=== PATIENT | male | born 1945 | race Caucasian/White ===

== ENCOUNTER 2016-08-29 09:00 | Outpatient (CLI) | payer MEDICARE, OTHER | END 2016-08-29 23:59 | disposition home or self-care (01) | LOC: WOU 09:00 | PROVIDERS: ATTEND Podiatrist Foot & Ankle Surgery | DX: M72.2 Plantar fascial fibromatosis (principal); I83.891 Varicose veins of right lower extremity with other complications; M17.12 Unilateral primary osteoarthritis, left knee | CPT/HCPCS: G0463 ==

== ENCOUNTER 2016-12-04 08:43 | Outpatient (CLI) | payer MEDICARE, OTHER ==
[2016-12-04 09:35] LABS: BASOPHILS % (AUTO) 0.5 % (0.0-2.0); EOSINOPHILS # (AUTO) 0.3 /CMM (0.0-0.7); EOSINOPHILS % (AUTO) 4.3 % (0.0-6.0); HEMATOCRIT 44 % (39-51); HEMOGLOBIN 14.6 g/dL (13.5-17.5); LYMPHOCYTES # (AUTO) 1.3 /CMM (0.8-4.8); LYMPHOCYTES % (AUTO) 19.8 % (20.0-44.0); MEAN CORPUSCULAR HEMOGLOBIN 30 PG (26.0-33.0); MEAN CORPUSCULAR HGB CONC 33 g/dl (31.0-36.0); MEAN CORPUSCULAR VOLUME 90 fL (80-96); MONOCYTES # (AUTO) 0.5 /CMM (0.1-1.30); MONOCYTES % (AUTO) 7.4 % (2.0-12.0); NEUTROPHILS # (AUTO) 4.3 /CMM (1.8-8.9); PLATELET COUNT (AUTO) 232 /CMM (150-450); RDW COEFFICIENT OF VARIATION 14.1 (11.5-15.0); RED BLOOD CELL COUNT(AUTO) 4.93 MIL/uL (4.5-6.0); WHITE BLOOD COUNT (AUTO) 6.3 K/uL (4.3-11.0)
[2016-12-04 09:39] LABS: BILIRUBIN,TOTAL 0.6 mg/dL (0.2-1.0); CALCIUM, SERUM 9.1 mg/dL (8.5-10.1); CREATININE 1.1 mg/dL (0.6-1.3); POTASSIUM 4.2 mmol/L (3.5-5.1); TOTAL PROTEIN, SERUM 7.4 g/dL (6.4-8.2)
[2016-12-04 09:47] LABS: PROSTATE SPECIFIC ANTIGEN SCR 0.77 ng/mL (0.00-4.00); THYROID STIMULATING HORMONE 2.677 uIU/mL (0.358-3.74)
== END 2016-12-04 23:59 | disposition home or self-care (01) ==
LOC: LAB 08:43
PROVIDERS: ATTEND Internal Medicine Cardiovascular Disease
DX: E78.5 Hyperlipidemia, unspecified (principal); I10 Essential (primary) hypertension; R53.83 Other fatigue; N40.0 Benign prostatic hyperplasia without lower urinary tract symptoms
CPT/HCPCS: 36415; 80053-TC; 80061-TC; 84153-TC; 84443-TC; 85025-TC

== ENCOUNTER 2017-06-15 10:19 | Inpatient (IN) | payer MEDICARE, OTHER ==
[~2017-06-15] VITALS: Ht 180.3 cm; Wt 93.0 kg
[2017-06-15] MEDS ORDERED: IV NS 0.9% 500 ML BAG IV ONE (11:00)
[2017-06-15 11:15] LABS: BASOPHILS % (AUTO) 0.4 % (0.0-2.0); EOSINOPHILS # (AUTO) 0.3 /CMM (0.0-0.7); EOSINOPHILS % (AUTO) 4.4 % (0.0-6.0); HEMATOCRIT 48 % (39-51); HEMOGLOBIN 15.9 g/dL (13.5-17.5); LYMPHOCYTES # (AUTO) 1.1 /CMM (0.8-4.8); LYMPHOCYTES % (AUTO) 19.7 % (20.0-44.0); MEAN CORPUSCULAR HEMOGLOBIN 30 PG (26.0-33.0); MEAN CORPUSCULAR HGB CONC 33 g/dl (31.0-36.0); MEAN CORPUSCULAR VOLUME 90 fL (80-96); MONOCYTES # (AUTO) 0.5 /CMM (0.1-1.30); MONOCYTES % (AUTO) 9.3 % (2.0-12.0); NEUTROPHILS # (AUTO) 3.8 /CMM (1.8-8.9); NEUTROPHILS % (AUTO) 66.2 % (43.0-81.0); PLATELET COUNT (AUTO) 189 /CMM (150-450); RDW COEFFICIENT OF VARIATION 14.7 (11.5-15.0); RED BLOOD CELL COUNT(AUTO) 5.34 MIL/uL (4.5-6.0); WHITE BLOOD COUNT (AUTO) 5.7 K/uL (4.3-11.0)
[2017-06-15] MEDS ORDERED: MULT-24 PO (11:15)
[2017-06-15] MEDS ORDERED: ASPI81TA2 PO (11:15)
[2017-06-15] MEDS ORDERED: LOSA100T15 PO (11:15)
[2017-06-15] MEDS ORDERED: LEVO50TA8 PO (11:15)
[2017-06-15] MEDS ORDERED: METO25TA20 PO (11:15)
[2017-06-15] MEDS ORDERED: SIMV10TA6 PO (11:15)
[2017-06-15] MEDS ORDERED: DOCU-25 PO (11:15)
[2017-06-15] MEDS ORDERED: CHLO25TA2 PO (11:17)
[2017-06-15 11:33] LABS: TROPONIN I < 0.017 ng/mL (0.00-0.056)
[2017-06-15 11:36] LABS: ALANINE AMINOTRANSFERASE 31 U/L (12-78); ALBUMIN 3.9 g/dL (3.4-5.0); ALKALINE PHOSPHATASE 61 U/L (46-116); ASPARTATE AMINOTRANSFERASE 19 U/L (15-37); BILIRUBIN,DIRECT 0.1 mg/dL (0.0-0.2); BILIRUBIN,TOTAL 0.5 mg/dL (0.2-1.0); CALCIUM, SERUM 9.5 mg/dL (8.5-10.1); CARBON DIOXIDE 24 mmol/L (21-32); CHLORIDE 106 mmol/L (98-107); CREATININE 1.1 mg/dL (0.6-1.3); GLUCOSE 108 mg/dL (74-106); POTASSIUM 4.1 mmol/L (3.5-5.1); SODIUM SERUM 142 mmol/L (136-145); TOTAL PROTEIN, SERUM 7.4 g/dL (6.4-8.2); UREA NITROGEN, BLOOD 22 mg/dL (7-18)
[2017-06-15 11:44] LABS: INR 0.94 (0.87-1.13); PROTHROMBIN TIME 9.8 SECS (9.5-12.7)
[2017-06-15 13:08] VITALS: BP 132/87
[2017-06-15 13:15] VITALS: BP 152/87
[2017-06-15] MEDS ORDERED: HYDROCODONE/APAP 5/325MG 1 EACH TABLET PO PRN (14:30)
[2017-06-15] MEDS ORDERED: Z GUARD REMEDY 2 OZ OINT TP PRN (14:30)
[2017-06-15] MEDS ORDERED: MAGNESIUM HYDROXIDE 30 ML UDC PO PRN (14:30)
[2017-06-15] MEDS ORDERED: ZOLPIDEM TARTRATE 5 MG TABLET PO PRN (14:30)
[2017-06-15] MEDS ORDERED: ACETAMINOPHEN 325 MG TABLET PO PRN (14:30)
[2017-06-15] MEDS ORDERED: ONDANSETRON HCL/PF 4 MG/2 ML VIAL IVP PRN (14:30)
[2017-06-15] MEDS ORDERED: MAG HYDROX/AL HYDROX/SIMETH 30 ML UDC PO PRN (14:30)
[2017-06-15] MEDS: IV NS 0.9% 1,000 ML IV PRN (15:52)
[2017-06-15 16:00] VITALS: BP 173/86
[2017-06-15] MEDS: ASPIRIN 81 MG TAB.CHEW PO SCH (16:08)
[2017-06-15 16:14] VITALS: BP 173/86
[2017-06-15] MEDS: METOPROLOL TARTRATE 25 MG TABLET PO SCH (16:18)
[2017-06-15] MEDS: DOCUSATE SODIUM 100 MG CAPSULE PO SCH (16:19)
[2017-06-15 16:35] VITALS: BP_SYST 146; BP_SYST 160; BP_SYST 171; BP_DIAS 76; BP_DIAS 91; BP_DIAS 98
[2017-06-15 20:00] VITALS: BP 136/68
[2017-06-16] VITALS (8 sets, daily range): BP systolic 135–160; BP diastolic 69–79
[2017-06-16] MEDS: IV NS 0.9% 1,000 ML IV PRN ×2 (04:16→18:44)
[2017-06-16 06:11] LABS: BASOPHILS % (AUTO) 0.7 % (0.0-2.0); EOSINOPHILS # (AUTO) 0.3 /CMM (0.0-0.7); EOSINOPHILS % (AUTO) 5.3 % (0.0-6.0); HEMATOCRIT 46 % (39-51); HEMOGLOBIN 15.3 g/dL (13.5-17.5); LYMPHOCYTES # (AUTO) 1.1 /CMM (0.8-4.8); LYMPHOCYTES % (AUTO) 18.1 % (20.0-44.0); MEAN CORPUSCULAR HEMOGLOBIN 30 PG (26.0-33.0); MEAN CORPUSCULAR HGB CONC 33 g/dl (31.0-36.0); MEAN CORPUSCULAR VOLUME 89 fL (80-96); MONOCYTES # (AUTO) 0.5 /CMM (0.1-1.30); MONOCYTES % (AUTO) 7.6 % (2.0-12.0); NEUTROPHILS # (AUTO) 4.1 /CMM (1.8-8.9); NEUTROPHILS % (AUTO) 68.3 % (43.0-81.0); PLATELET COUNT (AUTO) 180 /CMM (150-450); RED BLOOD CELL COUNT(AUTO) 5.16 MIL/uL (4.5-6.0)
[2017-06-16 06:13] LABS: ALANINE AMINOTRANSFERASE 24 U/L (12-78); ALBUMIN 3.3 g/dL (3.4-5.0); ALKALINE PHOSPHATASE 54 U/L (46-116); ASPARTATE AMINOTRANSFERASE 16 U/L (15-37); BILIRUBIN,TOTAL 0.5 mg/dL (0.2-1.0); CALCIUM, SERUM 8.9 mg/dL (8.5-10.1); CARBON DIOXIDE 25 mmol/L (21-32); CHLORIDE 108 mmol/L (98-107); CREATININE 0.9 mg/dL (0.6-1.3); GLUCOSE 100 mg/dL (74-106); MAGNESIUM 1.9 mg/dL (1.8-2.4); PHOSPHORUS 3.2 mg/dL (2.5-4.9); SODIUM SERUM 143 mmol/L (136-145); TOTAL PROTEIN, SERUM 6.5 g/dL (6.4-8.2); UREA NITROGEN, BLOOD 14 mg/dL (7-18)
[2017-06-16 06:15] LABS: CHOLESTEROL 162 mg/dL (<200); HDL CHOLESTEROL 35 mg/dL (40-60); LDL 104 mg/dL (0-99); TRIGLYCERIDES 120 mg/dL (30-150)
[2017-06-16] MEDS: LEVOTHYROXINE SODIUM 50 MCG TABLET PO SCH (07:41)
[2017-06-16] MEDS: DOCUSATE SODIUM 100 MG CAPSULE PO SCH ×2 (08:07→16:50)
[2017-06-16] MEDS: SIMVASTATIN 10 MG TABLET PO SCH (08:08)
[2017-06-16] MEDS: LOSARTAN POTASSIUM 50 MG TABLET PO SCH (08:08)
[2017-06-16] MEDS: METOPROLOL TARTRATE 25 MG TABLET PO SCH ×2 (08:09→16:50)
[2017-06-16] MEDS: ASPIRIN 81 MG TAB.CHEW PO SCH (08:09)
[2017-06-16] MEDS: MULTIVITAMINS,THERAGRAN 1 UDTAB TABLET PO SCH (08:36)
[2017-06-16] MEDS ORDERED: CHLORTHALIDONE 25 MG PO SCH (09:00)
[2017-06-17] VITALS: BP 144/79
[2017-06-17 04:00] VITALS: BP 120/67
[2017-06-17] MEDS: IV NS 0.9% 1,000 ML IV PRN (06:33)
[2017-06-17 07:15] VITALS: BP 133/75
[2017-06-17] MEDS: ASPIRIN 81 MG TAB.CHEW PO SCH (09:12)
[2017-06-17] MEDS: LEVOTHYROXINE SODIUM 50 MCG TABLET PO SCH (09:12)
[2017-06-17] MEDS: DOCUSATE SODIUM 100 MG CAPSULE PO SCH (09:12)
[2017-06-17] MEDS: LOSARTAN POTASSIUM 50 MG TABLET PO SCH (09:13)
[2017-06-17 09:14] VITALS: BP 133/75
[2017-06-17] MEDS: SIMVASTATIN 10 MG TABLET PO SCH (09:14)
[2017-06-17] MEDS: MULTIVITAMINS,THERAGRAN 1 UDTAB TABLET PO SCH (09:14)
[2017-06-17] MEDS: METOPROLOL TARTRATE 25 MG TABLET PO SCH (09:14)
== END 2017-06-17 14:40 | disposition home or self-care (01) | DRG 73 ==
LOC: ER 10:20 → TELE 12:43 → MED 06-17 09:20
PROVIDERS: ADMIT Internal Medicine; ATTEND Internal Medicine
DX: G90.8 Other disorders of autonomic nervous system (principal); N17.0 Acute kidney failure with tubular necrosis; J44.9 Chronic obstructive pulmonary disease, unspecified; I10 Essential (primary) hypertension; E78.5 Hyperlipidemia, unspecified; Z86.73 Personal history of transient ischemic attack (TIA), and cerebral infarction without residual deficits; T50.2X5A Adverse effect of carbonic-anhydrase inhibitors, benzothiadiazides and other diuretics, initial encounter; Y92.009 Unspecified place in unspecified non-institutional (private) residence as the place of occurrence of the external cause; Z91.81 History of falling
CPT/HCPCS: 36415; 70450-TC; 71010-TC; 72125-TC; 80048-TC; 80053-TC; 80061-TC; 80076-TC; 83735-TC; 84100-TC; 84484-TC; 85025-TC; 85730-TC; 87081-TC; 93307-TC; 93880-TC; 93970-TC; A4606; J7030; J7040; L0172; Z7610

== ENCOUNTER 2017-06-21 11:47 | Outpatient (CLI) | payer MEDICARE, OTHER ==
[~2017-06-21] VITALS: Ht 182.9 cm; Wt 93.9 kg
[~2017-06-21 11:47] MED LIST: ASPI-1169 PO; CHLO25TA2 PO; DOCU-141 PO; LEVO50TA8 PO; LOSA100T15 PO; METO25TA20 PO; MULT-24 PO; SIMV10TA6 PO
[2017-06-21 11:51] VITALS: BP 156/87
[2017-06-21 12:38] VITALS: BP 144/70
== END 2017-06-21 23:59 | disposition home or self-care (01) ==
LOC: MSC 11:47
PROVIDERS: ATTEND Internal Medicine
DX: I10 Essential (primary) hypertension (principal); E03.9 Hypothyroidism, unspecified; J44.9 Chronic obstructive pulmonary disease, unspecified; E78.5 Hyperlipidemia, unspecified; Z86.73 Personal history of transient ischemic attack (TIA), and cerebral infarction without residual deficits

== ENCOUNTER 2017-08-09 11:39 | Outpatient (CLI) | payer MEDICARE, OTHER | END 2017-08-09 23:59 | disposition home or self-care (01) | LOC: LAB 11:39 | PROVIDERS: ATTEND Surgery | DX: K57.30 Diverticulosis of large intestine without perforation or abscess without bleeding (principal); K40.90 Unilateral inguinal hernia, without obstruction or gangrene, not specified as recurrent; J43.8 Other emphysema; I25.10 Atherosclerotic heart disease of native coronary artery without angina pectoris; M76.891 Other specified enthesopathies of right lower limb, excluding foot | CPT/HCPCS: 36415; 82565-TC; 84520-TC ==

== ENCOUNTER 2017-10-08 12:53 | Outpatient (CLI) | payer MEDICARE, OTHER ==
[2017-10-08 13:03] VITALS: BP 139/81
== END 2017-10-08 23:59 | disposition home or self-care (01) ==
LOC: MSC 12:53
PROVIDERS: ATTEND Internal Medicine
DX: M15.9 Polyosteoarthritis, unspecified (principal); R07.89 Other chest pain; I10 Essential (primary) hypertension; E03.9 Hypothyroidism, unspecified; E78.5 Hyperlipidemia, unspecified; J44.9 Chronic obstructive pulmonary disease, unspecified

== ENCOUNTER 2017-10-11 08:47 | Outpatient (CLI) | payer MEDICARE, OTHER ==
[2017-10-11] MEDS ORDERED: REGADENOSON 0.4 MG/5 ML DISP.SYRIN IVP ONE (09:30)
[2017-10-11 09:38] LABS: BASOPHILS % (AUTO) 0.4 % (0.0-2.0); EOSINOPHILS # (AUTO) 0.3 /CMM (0.0-0.7); EOSINOPHILS % (AUTO) 4.8 % (0.0-6.0); HEMATOCRIT 51 % (39-51); HEMOGLOBIN 17.2 g/dL (13.5-17.5); LYMPHOCYTES # (AUTO) 1.3 /CMM (0.8-4.8); LYMPHOCYTES % (AUTO) 22.9 % (20.0-44.0); MEAN CORPUSCULAR HEMOGLOBIN 30 PG (26.0-33.0); MEAN CORPUSCULAR HGB CONC 34 g/dl (31.0-36.0); MEAN CORPUSCULAR VOLUME 90 fL (80-96); MONOCYTES # (AUTO) 0.4 /CMM (0.1-1.30); MONOCYTES % (AUTO) 7.6 % (2.0-12.0); NEUTROPHILS # (AUTO) 3.7 /CMM (1.8-8.9); NEUTROPHILS % (AUTO) 64.3 % (43.0-81.0); PLATELET COUNT (AUTO) 197 /CMM (150-450); RED BLOOD CELL COUNT(AUTO) 5.72 MIL/uL (4.5-6.0); WHITE BLOOD COUNT (AUTO) 5.7 K/uL (4.3-11.0)
[2017-10-11 09:55] LABS: ALANINE AMINOTRANSFERASE 31 U/L (12-78); ALBUMIN 3.9 g/dL (3.4-5.0); ALKALINE PHOSPHATASE 67 U/L (46-116); ASPARTATE AMINOTRANSFERASE 23 U/L (15-37); BILIRUBIN,TOTAL 0.4 mg/dL (0.2-1.0); CARBON DIOXIDE 26 mmol/L (21-32); CHLORIDE 106 mmol/L (98-107); CREATININE 1.1 mg/dL (0.6-1.3); GLUCOSE 101 mg/dL (74-106); POTASSIUM 4.6 mmol/L (3.5-5.1); SODIUM SERUM 141 mmol/L (136-145); TOTAL PROTEIN, SERUM 7.4 g/dL (6.4-8.2); UREA NITROGEN, BLOOD 21 mg/dL (7-18)
[2017-10-11 10:12] LABS: INR 0.94 (0.87-1.13)
[2017-10-11 11:26] LABS: APPEARANCE,URINE CLEAR (CLEAR); BILIRUBIN,URINE NEGATIVE (NEGATIVE); BLOOD, URINE NEGATIVE Ery/uL (NEGATIVE); COLOR,URINE YELLOW (YELLOW); KETONES,URINE NEGATIVE (NEGATIVE); LEUKOCYTE ESTERASE ,URINE NEGATIVE (NEGATIVE); NITRITE, URINE NEGATIVE (NEGATIVE); PH,URINE 5.5 (5.0-8.0); PROTEIN,URINE NEGATIVE (NEGATIVE); UGLUCOSE NEGATIVE (NEGATIVE); UROBILINOGEN,URINE 0.2 EU/dL (0.2)
== END 2017-10-11 23:59 | disposition home or self-care (01) ==
LOC: RAD 08:47
PROVIDERS: ATTEND Internal Medicine Cardiovascular Disease
DX: Z01.818 Encounter for other preprocedural examination (principal); I11.9 Hypertensive heart disease without heart failure; R53.83 Other fatigue; M43.8X4 Other specified deforming dorsopathies, thoracic region
CPT/HCPCS: 36415; 71046; 78452; 80053; 81001; 85025; 85730; A9502; J2785; 81000-TC

== ENCOUNTER 2017-11-20 12:08 | Outpatient (CLI) | payer MEDICARE, OTHER ==
[2017-11-20 12:15] VITALS: BP 140/70
== END 2017-11-20 23:59 | disposition home or self-care (01) ==
LOC: MSC 12:08
PROVIDERS: ATTEND Internal Medicine
DX: J20.9 Acute bronchitis, unspecified (principal); J44.0 Chronic obstructive pulmonary disease with (acute) lower respiratory infection; M19.90 Unspecified osteoarthritis, unspecified site; Z96.641 Presence of right artificial hip joint; I10 Essential (primary) hypertension; E03.9 Hypothyroidism, unspecified; Z86.73 Personal history of transient ischemic attack (TIA), and cerebral infarction without residual deficits

== ENCOUNTER 2018-01-22 12:46 | Outpatient (CLI) | payer MEDICARE, OTHER ==
[2018-01-22 13:22] VITALS: BP 155/77
== END 2018-01-22 23:59 | disposition home or self-care (01) ==
LOC: MSC 12:46
PROVIDERS: ATTEND Internal Medicine
DX: M77.12 Lateral epicondylitis, left elbow (principal); M25.422 Effusion, left elbow; M19.022 Primary osteoarthritis, left elbow; Z96.641 Presence of right artificial hip joint; I10 Essential (primary) hypertension; E03.9 Hypothyroidism, unspecified; Z86.73 Personal history of transient ischemic attack (TIA), and cerebral infarction without residual deficits; J44.9 Chronic obstructive pulmonary disease, unspecified

== ENCOUNTER 2019-06-27 13:18 | Inpatient (IN) | payer MEDICARE, OTHER ==
[~2019-06-27] VITALS: Ht 180.3 cm; Wt 93.0 kg
[~2019-06-27 13:18] MED LIST changes: -LOSA100T15 PO; +LOSA100T31 PO; -SIMV10TA6 PO; +SIMV10TA98 PO
--- NOTE | 2019-06-27 13:25 | NUR ---
SENT BY DR HERNANDEZ (CARDIO) FOR BRADYCARDIA; POSSIBLE PACEMAKER INSERTION. A/OX4, BREATHING EVEN AND UNLABORED, NO SOB NOTED. CHANGED INTO GOWN, ATTACHED TO THE PULLMAN CONDUCTOR.
--- NOTE | 2019-06-27 13:38 | NUR ---
MOVE SHEET SUBMITTED TO ADMITTING ALSO ASKED FOR TELE BED
[2019-06-27 13:44] LABS: BASOPHILS % (AUTO) 0.4 % (0.0-2.0); EOSINOPHILS % (AUTO) 3.2 % (0.0-6.0); HEMATOCRIT 52 % (39-51); HEMOGLOBIN 17.2 g/dL (13.5-17.5); LYMPHOCYTES # (AUTO) 1.7 /CMM (0.8-4.8); LYMPHOCYTES % (AUTO) 21.7 % (20.0-44.0); MEAN CORPUSCULAR HGB CONC 33 g/dl (31.0-36.0); MEAN CORPUSCULAR VOLUME 90 fL (80-96); MONOCYTES # (AUTO) 0.7 /CMM (0.1-1.30); MONOCYTES % (AUTO) 8.6 % (2.0-12.0); NEUTROPHILS # (AUTO) 5.1 /CMM (1.8-8.9); NEUTROPHILS % (AUTO) 66.1 % (43.0-81.0); PLATELET COUNT (AUTO) 181 /CMM (150-450); RED BLOOD CELL COUNT(AUTO) 5.76 MIL/uL (4.5-6.0); WHITE BLOOD COUNT (AUTO) 7.7 K/uL (4.3-11.0)
[2019-06-27 13:51] LABS: CALCIUM, SERUM 9.3 mg/dL (8.5-10.1)
--- NOTE | 2019-06-27 13:57 | NUR ---
ERNST PAGED ITS DR. LANGLEY
[2019-06-27 14:32] LABS: THYROID STIMULATING HORMONE 3.659 uIU/mL (0.358-3.74)
--- NOTE | 2019-06-27 14:47 | NUR ---
CALLED HOUSE SUP FOR BED.
[2019-06-27] MEDS ORDERED: ALBUTEROL INHALER INH (15:16)
[2019-06-27] MEDS ORDERED: UMEC1BLS INH (15:16)
--- NOTE | 2019-06-27 15:39 | NUR ---
Patient is resting comfortably in bed with eyes closed. Easily aroused. VSS
--- NOTE | 2019-06-27 15:46 | NUR ---
314-1, STEVEN MCKEON ASSIGNED
--- NOTE | 2019-06-27 16:22 | NUR ---
REPORT GIVEN TO CALDERON MCKEON.
[2019-06-27 16:30] VITALS: BP 158/88
--- NOTE | 2019-06-27 16:34 | NUR ---
ENDORSED TO CALDERON MCKEON. PATIENT TRANSFERRED TO ROOM 314-1 VIA ACLS PROTOCOL. NO DISTRESS NOTED.
--- NOTE | 2019-06-27 16:35 | NUR ---
FUNERAL SALES MANAGER OPENING NOTES Received Patient awake and ambulatory. A/O x 4. VS stable with no acute distress. Breathing even and unlabored on room air with no respiratory distress. Denies pain at this time. 20g PIV on RAC clean, intact, patent and flushing well. Telemonitor in place and patent reading SR with HR-68. Skin intact. Safety precautions in place. Bed locked and set to lowest position with side rails x 2 up. All needs rendered at this time. Call light within reach. Will continue to monitor.
[2019-06-27] MEDS ORDERED: MAGNESIUM HYDROXIDE 30 ML UDC PO PRN (17:00)
[2019-06-27] MEDS ORDERED: ONDANSETRON HCL/PF 4 MG/2 ML VIAL IVP PRN (17:00)
[2019-06-27] MEDS ORDERED: ACETAMINOPHEN 325 MG TABLET PO PRN ×2 (17:00→21:30)
[2019-06-27] MEDS ORDERED: HYDROCODONE/APAP 5/325MG 1 EACH TABLET PO PRN ×2 (17:00→21:30)
[2019-06-27] MEDS ORDERED: MAG HYDROX/AL HYDROX/SIMETH 30 ML UDC PO PRN (17:00)
[2019-06-27] MEDS ORDERED: ZOLPIDEM TARTRATE 5 MG TABLET PO PRN (17:00)
[2019-06-27] MEDS ORDERED: FAMOTIDINE/PF INJ 20 MG/2 ML VIAL IV ONE (17:34)
[2019-06-27] MEDS ORDERED: FENTANYL PF 100MCG/2ML AMPUL ONE (17:34)
[2019-06-27] MEDS ORDERED: MIDAZOLAM HCL 2 MG/2ML VIAL ONE (17:34)
--- NOTE | 2019-06-27 17:46 | NUR ---
INTERLOCKER MAINTAINER NOTES Patient taken to OR for Pacemaker Insertion. Patient in stable condition.
[2019-06-27] MEDS ORDERED: IOHEXOL 240MG/ML 0 ML IV ONE (17:51)
[2019-06-27] MEDS ORDERED: LIDOCAINE HCL/MPF 1% 30 ML VIAL IJ ONE (17:51)
[2019-06-27] MEDS ORDERED: CEFAZOLIN 1 GM ONE (18:46)
[2019-06-27] MEDS ORDERED: LIDOCAINE HCL/PF 1% 30 ML SDV ONE (18:47)
--- NOTE | 2019-06-27 19:31 | NUR ---
JACQUARD CARD LACER CLOSING NOTES Patient in OR at this time for Pacemaker Insertion. Report given to oncoming shift.
--- NOTE | 2019-06-27 19:36 | NUR ---
RADIATION PROTECTION SPECIALIST OPENING NOTES Patient currently in OR for Pacemaker Insertion. Will follow up varghese.
--- NOTE | 2019-06-27 19:40 | NUR ---
WINE BOTTLE INSPECTOR POST- OP NOTES PATIENT RECEIVED IN STABLE CONDITION POST-OP PLACEMENT OF PACEMAKER ON LEFT CHEST. PATIENT IS EASILY AROUSABLE, ABLE TO UNDERSTAND AND FOLLOW COMMANDS. NO SIGNS OF ACTIVE BLEEDING ON GROIN OR LEFT UPPERCHEST. PATIENT IS ON 4L NC WITH SPO2 93%. 5 LB WEIGHTS MAINTAINED ON GROIN AND LEFT UPPER CHEST. IV LOCATED ON LEFT HAND PATENT AND INTACT RUNNING NS. WILL CONTINUE TO MONITOR
[2019-06-27] MEDS ORDERED: SIMVASTATIN 10 MG TABLET PO SCH (22:00)
[2019-06-27] MEDS ORDERED: ANESTHESIA TRAY IN PYXIS 1 EA TRAY MC ONE (22:11)
[2019-06-27 22:19] VITALS: BP 136/75
--- NOTE | 2019-06-27 22:19 | NUR ---
FIELD ARTILLERY TARGETING TECHNICIAN NOTES PATIENT RECEIVED BACK FROM OR IN STABLE CONDITION. REPORT RECEIVED FROM STEVEN. WILL CONTINUE TO MONITOR.
[2019-06-27 22:39] VITALS: BP 129/71
[2019-06-27] MEDS: METOPROLOL TARTRATE 25 MG TABLET PO SCH (22:47)
[2019-06-27 23:01] VITALS: BP 131/75
[2019-06-27 23:16] VITALS: BP 131/75
[2019-06-27 23:50] VITALS: BP 120/71
[2019-06-28 00:20] VITALS: BP 121/68
[2019-06-28] MEDS ORDERED: CEFAZOLIN 1 GM ONE (00:36)
[2019-06-28] MEDS: CEFAZOLIN 1 GM in IV D5W 50 ML IV SCH ×2 (00:41→09:04)
[2019-06-28 01:20] VITALS: BP 125/69
--- NOTE | 2019-06-28 06:16 | NUR ---
DUST COLLECTOR ATTENDANT CLOSING NOTES Patient is currently resting in bed A/O x4. No signs of acute distress, no sob noted, and no current complaints of pain. O2 sat maintained with 2L of O2 via NC. Patient is continent using the urinal. Patient is able to ambulate, but per MD order bed rest for post-op orders. No signs of active bleeding on post- op sites of right groin and left upper chest. Ice pack currently placed on left chest. IV located on left hand patent and intact. Safety precautions in place with bed in lowest position, side rails up x2, breaks on. All needs were attended to. Will endorse to oncoming shift about varghese.
[2019-06-28 07:15] LABS: BASOPHILS % (AUTO) 0.2 % (0.0-2.0); EOSINOPHILS % (AUTO) 1.5 % (0.0-6.0); HEMATOCRIT 49 % (39-51); HEMOGLOBIN 16.4 g/dL (13.5-17.5); LYMPHOCYTES % (AUTO) 11.2 % (20.0-44.0); MEAN CORPUSCULAR HGB CONC 34 g/dl (31.0-36.0); MEAN CORPUSCULAR VOLUME 89 fL (80-96); MONOCYTES # (AUTO) 0.8 /CMM (0.1-1.30); NEUTROPHILS # (AUTO) 6.7 /CMM (1.8-8.9); NEUTROPHILS % (AUTO) 78.1 % (43.0-81.0); PLATELET COUNT (AUTO) 161 /CMM (150-450); RED BLOOD CELL COUNT(AUTO) 5.44 MIL/uL (4.5-6.0); WHITE BLOOD COUNT (AUTO) 8.5 K/uL (4.3-11.0)
[2019-06-28 07:18] LABS: CALCIUM, SERUM 8.2 mg/dL (8.5-10.1); CREATININE 0.8 mg/dL (0.6-1.3); PHOSPHORUS 3.4 mg/dL (2.5-4.9)
[2019-06-28 08:00] VITALS: BP 113/59
[2019-06-28] MEDS ORDERED: AMLODIPINE BESYLATE 5 MG TABLET PO SCH (09:00)
[2019-06-28] MEDS ORDERED: LOSARTAN POTASSIUM 50 MG TABLET PO SCH (09:00)
[2019-06-28 09:04] VITALS: BP 113/59
[2019-06-28] MEDS: METOPROLOL TARTRATE 25 MG TABLET PO SCH (09:04)
--- NOTE | 2019-06-28 09:42 | NUR ---
WAREHOUSE ORDER PICKER NOTES-- PT SEEN AND EXAMINED BY DR. CORONA W/ ORDERS TO D/C TELE. PER DR. CORONA, PT WILL GO HOME WITH KEFLEX PO X5 DAYS AND IS CLEARED BY CARDIO STANDPOINT.
--- NOTE | 2019-06-28 13:30 | NUR ---
MS DISPENSING OPTICIAN NOTE PT DISCHARGED TO HOME IN MEDICALLY STABLE CONDITION, S/P PACEMAKER TO [facility]. PT IS A/O X4, AFEBRILE. RESPIRATIONS ARE EVEN AND UNLABORED, NOT IN ANY ACUTE DISTRESS NOTED. PT DENIES ANY PAIN, SOB, N/V.N ABDOMEN IS SOFT AND NONDISTENDED, BOWEL SOUNDS ARE PRESENT IN ALL 4 QUADRANTS UPON AUSCULTATION. DENIES ANY BLADDER DISCOMFORT. DRESSING TO LEFT CHEST INTACT, NO BLEEDING/DRAINAGE OR S/SX OF INFECTION NOTED. DRESSING KEPT CLEAN AND DRY. PT IS AMBULATORY, CONTINENT W/ BOWEL AND BLADDER. SKIN IS INTACT. EXPLAINED DISCHARGE PAPERWORK TO PT AND SON JAY WITH VERBAL AND WRITTEN UNDERSTANDING. INCLUDED BOOKLET OF POST OP PACEMAKER CARE AND PRESCRIPTION FOR KEFLEX. ALL BELONGINGS SENT HOME WITH PT. IV ACCESS REMOVED, APPLIED PRESSURE AND TOLERATED WELL. ID BANDS REMOVED. PT LEFT VIA PERSONAL VEHICLE, ACCOMPANIED WITH 1 STAFF ASSIST USING W/C. PT LEFT IN MEDICALLY STABLE CONDITION.
[2019-06-28] MEDS ORDERED: CEPHALEXIN MONOHYDRATE 500 MG CAPSULE PO SCH (21:00)
== END 2019-06-28 13:30 | disposition home or self-care (01) | DRG 243 ==
LOC: ER 13:19 → TELE 16:12 → MED 06-28 11:08
PROC: 0JH606Z Insertion of Pacemaker, Dual Chamber into Chest Subcutaneous Tissue and Fascia, Open Approach (ICD-10-PCS; principal; 2019-06-27)
PROC: 02H63JZ Insertion of Pacemaker Lead into Right Atrium, Percutaneous Approach (ICD-10-PCS; 2019-06-27)
PROC: 02HK3JZ Insertion of Pacemaker Lead into Right Ventricle, Percutaneous Approach (ICD-10-PCS; 2019-06-27)
DX: I44.1 Atrioventricular block, second degree (principal); E87.1 Hypo-osmolality and hyponatremia; R00.1 Bradycardia, unspecified; Z86.73 Personal history of transient ischemic attack (TIA), and cerebral infarction without residual deficits; Z96.649 Presence of unspecified artificial hip joint; Z79.82 Long term (current) use of aspirin; N40.0 Benign prostatic hyperplasia without lower urinary tract symptoms; I10 Essential (primary) hypertension; Z91.013 Allergy to seafood; Z79.899 Other long term (current) drug therapy; Z98.890 Other specified postprocedural states; Z79.51 Long term (current) use of inhaled steroids; D64.9 Anemia, unspecified; E03.9 Hypothyroidism, unspecified; E78.5 Hyperlipidemia, unspecified; J44.9 Chronic obstructive pulmonary disease, unspecified
CPT/HCPCS: 36415; 71045-TC; 80048-TC; 80061-TC; 83735-TC; 84100-TC; 84439-TC; 84443-TC; 85025-TC; 85610-TC; 85730-TC; 86850-TC; 87081-TC; 94799-TC; C1769; C1786; G0378; J0690; J1644; J2250; J2405; J2765; J3010; J3490; J7030; J7060; Q9966

== ENCOUNTER 2021-04-13 11:03 | Outpatient (CLI) | payer MEDICARE, OTHER ==
[~2021-04-13 11:03] MED LIST changes: +ALBUTEROL INHALER INH; -ASPI-1169 PO; -CHLO25TA2 PO; +UMEC1BLS INH
[2021-04-13 11:47] LABS: BASOPHILS % (AUTO) 0.5 % (0.0-2.0); EOSINOPHILS % (AUTO) 1.8 % (0.0-6.0); HEMATOCRIT 50 % (39-51); HEMOGLOBIN 16.5 g/dL (13.5-17.5); LYMPHOCYTES # (AUTO) 1.3 K/uL (0.8-4.8); LYMPHOCYTES % (AUTO) 18.4 % (20.0-44.0); MEAN CORPUSCULAR HGB CONC 33 g/dl (31.0-36.0); MEAN CORPUSCULAR VOLUME 94 fL (80-96); MONOCYTES # (AUTO) 0.5 K/uL (0.1-1.30); MONOCYTES % (AUTO) 7.2 % (2.0-12.0); NEUTROPHILS # (AUTO) 5.2 K/uL (1.8-8.9); NEUTROPHILS % (AUTO) 72.1 % (43.0-81.0); PLATELET COUNT (AUTO) 182 K/uL (150-450); RED BLOOD CELL COUNT(AUTO) 5.33 MIL/uL (4.5-6.0); WHITE BLOOD COUNT (AUTO) 7.2 K/uL (4.3-11.0)
[2021-04-13 12:02] LABS: ALBUMIN 3.8 g/dL (3.4-5.0); BILIRUBIN,TOTAL 0.6 mg/dL (0.2-1.0); CALCIUM, SERUM 8.6 mg/dL (8.5-10.1); CREATININE 0.9 mg/dL (0.6-1.3); POTASSIUM 4.5 mmol/L (3.5-5.1); TOTAL PROTEIN, SERUM 6.9 g/dL (6.4-8.2)
[2021-04-13 12:09] LABS: THYROID STIMULATING HORMONE 1.958 uIU/mL (0.358-3.74)
== END 2021-04-13 23:59 | disposition home or self-care (01) ==
LOC: LAB 11:03
PROVIDERS: ATTEND Internal Medicine
DX: I10 Essential (primary) hypertension (principal); E78.5 Hyperlipidemia, unspecified; R53.83 Other fatigue; Z79.899 Other long term (current) drug therapy
CPT/HCPCS: 36415; 80053-TC; 80061-TC; 84439-TC; 84443-TC; 85025-TC